=== PATIENT | female | born 1990 | race Caucasian/White ===

== ENCOUNTER 2016-12-29 14:51 | Emergency (ER) | payer MEDICAID ==
--- NOTE | 2016-12-29 17:46 | ERNOTE ---
Medical Problem HPI - Narrative Date of Service: 12/29/16 - General Chief Complaint: General Assessment Time Seen by Provider: 12/29/16 17:37 Source: patient Exam Limitations: no limitations - Immun/Allergies/Home Medications Immunizations: IMMUNIZATION HX Immunizations Up to Date Yes History of Influenza Vaccine No Hx Pneumococcal Vaccination No Allergies/Adverse Reactions: Allergies No Known Allergies Allergy (Verified 06/18/15 08:57) Home Medications: HOME MEDICATIONS Dextroamphetamine/Amphetamine [Adderall 10 mg Tablet] 10 mg PO BID 06/16/15 [ Last Taken Unknown] clonazePAM [Klonopin] 1 mg PO HS 06/16/15 [Last Taken Unknown] Etonogestrel [Nexplanon] 68 mg SQ ONCE 06/17/15 [Last Taken Unknown] Lurasidone HCl [Latuda] 20 mg PO HS 06/17/15 [Last Taken Unknown] Cyclobenzaprine HCl [Flexeril] 5 mg PO BID PRN #10 tab 12/29/16 [Last Taken Unknown] - Pain Score Pain Score #1 Pain Score: 0 - History of Present History Narrative: 26yo, F, present to ER with reports of hands and feet going numb x 1 month intermittently. Associated symptoms include back back and cramping. States at times when she is holding her phone her hands will go numb. Other times she will be standing and feet will go numb. She is having no pain at this time, but earlier today did have increased pain and muscle spasms after bending forward. She notes pain is unchanged since initial onset. States she attempted to scheduled appt with WILI Celestin today, but was notified that next appt not for 2 weeks and recommended she come to ER for evaluation. Denies any loss of bowel or bladder or saddle anesthesia. Timing: intermittent Review of Systems - Review of Systems Constitutional: Absent: fever, chills, weakness, fatigue, malaise Respiratory: Absent: shortness of breath, cough, wheezing Cardiology: Absent: chest pain, palpitations, syncope Gastrointestinal/Abdominal: Present: diarrhea - few days. Absent: nausea, vomiting, constipation, abdominal pain Genitourinary: Absent: frequency, pain, dysuria, hematuria Musculoskeletal: Present: back pain, muscle pain Skin: Absent: rash Neurological: Present: numbness, tingling. Absent: dizziness/light-headedness, weakness, tremors Endocrine: Absent: excessive sweating, intolerance to heat, intolerance to cold , increased thirst, increased urine, unexplained weight gain Hematologic/Lymphatic: Absent: swollen glands - Patient's Past Medical History Patient History - Medical: Anemia, ADHD, Anxiety, Depression, Other Patient History - Cardiac/Respiratory: No pertinent hx Patient History - Cancer: No Hx of Cancer Patient History - Surgical Procedures: Patient History - Other: None LMP (Calendar): 06/02/15 - Family History Father Family History - Medical: No pertinent hx Family History - Cardiac/Respiratory: Hypertension, Hyperlipidemia Mother Family History - Medical: Other Family History - Cardiac/Respiratory: Hypertension, Hyperlipidemia Grandmother-Maternal Family History - Medical: Family History - Cardiac/Respiratory: No pertinent hx - Social History Living Situations: home Abuse History: No History of abuse Psych History: Hx of Anxiety, Hx of Depression, Current tx/ever been on anti- depressants or anti-anxiety meds Smoking Status: Current every day smoker Have you smoked in the past 12 months: Yes Alcohol Use: none Drug Use: none - Immunizations Immunizations Up to Date: Yes Hx Pneumococcal Vaccination: No History of Influenza Vaccine: No Physical Exam - Physical Exam General Appearance: Present: wd/wn, alert, no apparent distress Eye Exam: Normal inspection: bilateral, PERRL: bilateral, EOMI: bilateral Ears, Nose, Throat: Present: normal ENT inspection, normal pharynx Neck: Present: normal inspection, full range of motion, tender posterior midline Respiratory: Present: no respiratory distress, normal breath sounds, no accessory muscle use. Absent: rales, rhonchi, wheezing Cardiovascular/Chest: Present: regular rate, rhythm, no murmur Gastrointestinal/Abdominal: Present: normal bowel sounds, nontender, nondistended, soft Back Exam: Present: normal inspection, normal range of motion, no CVA tenderness , vertebral tenderness - lumbar spine, other - tenderness along L. lumbar muscle region and spinal nerve path to L., positive straight leg raise to L. Extremity Exam: Present: normal inspection, non-tender, normal range of motion, no edema, other - staffing consultant strength equal cristel Neurological Exam: Present: alert, oriented, normal mood/affect, no motor/ sensory deficits - strength 5/5 x4 ext, assurance senior manager insurance II-XII nml as tested, other - neg romberg, neg pronator drift, heel toe walk normal. Absent: facial droop, motor weakness Skin Exam: Present: normal color, warm/dry ED Progress - Date and Time Seen: Date and Time: 12/29/16 19:02 Reviewed discharge POC and f/u instructions. Pt v/u. - Vital Signs Patient's Vital Signs:: I have reviewed the patient's vital signs. Vital Signs: Vital Signs 12/29/16 12/29/16 15:04 16:40 Temperature 36.8 C Pulse Rate 108 H 101 H Respiratory 17 14 Rate Blood Pressure 149/95 148/94 O2 Sat by Pulse 99 97 Oximetry - Progress/Reassessment Chief Complaint: General Assessment Departure Clinical Impression: Intermittent paresthesia of left hand and foot, Intermittent paresthesia of right hand and foot Sciatica Qualifiers: Laterality: left Qualified Code(s): M54.32 - Sciatica, left side - Departure Disposition: Home self-care Condition: Good Instructions: Paresthesia, Sciatica, [id number] Additional Instructions: Ice/heat to back Limit activities that cause pain Call Sunday to schedule a follow up appt in the next few weeks with your PCP for recheck Cyclobenzaprine may cause drowsiness, do not drive or operate machinery while taking Seek care immediately for any loss of bowel or bladder Referrals: Kathy Glass FNP [Primary Care Provider] - Prescriptions: Cyclobenzaprine HCl [Flexeril] 5 mg PO BID PRN #10 tab PRN Reason: Pain
[2016-12-29 18:21] VITALS: BP 133/82
== END 2016-12-29 19:20 | disposition home or self-care (01) ==
LOC: ER 14:51
DX: R20.2 Paresthesia of skin (principal); F17.200 Nicotine dependence, unspecified, uncomplicated; F90.9 Attention-deficit hyperactivity disorder, unspecified type